=== PATIENT | male | born 1985 | race Caucasian/White ===

== ENCOUNTER 2016-12-02 02:00 | Emergency (ER) | payer SELFPAY ==
[~2016-12-02] VITALS: Ht 172.7 cm; Wt 87.0 kg
[2016-12-02 02:00] VITALS: BP 127/86
[2016-12-02] MEDS ORDERED: SODIUM CHLORIDE 0.9% 1,000 ML IV ONE (03:31)
[2016-12-02] MEDS ORDERED: FAMOTIDINE 20MG/2ML VIAL IV STA (03:31)
[2016-12-02] MEDS ORDERED: KETOROLAC 30MG/ML VIAL IV STA (03:31)
== END 2016-12-02 10:13 | disposition left against medical advice (07) ==
LOC: ER 10:13
DX: R10.2 Pelvic and perineal pain (principal); K21.9 Gastro-esophageal reflux disease without esophagitis; J45.909 Unspecified asthma, uncomplicated
CPT/HCPCS: 99281; Z7610; J7030